=== PATIENT | female | born 1995 | race Caucasian/White ===

== ENCOUNTER 2017-07-26 07:22 | Inpatient (IN) | payer MEDICAID ==
[~2017-07-26] VITALS: Ht 165.1 cm; Wt 56.8 kg
[2017-07-26 08:02] VITALS: BP 119/74
[2017-07-26 08:15] LABS: AMPHETAMINE SCREEN, URINE Negative (Negative); BARBITURATE SCREEN, URINE Negative (Negative); BENZODIAZEPINE SCREEN, URINE Negative (Negative); CANNABINOID SCREEN, URINE Positive (Negative); COCAINE SCREEN, URINE Negative (Negative); METHADONE SCREEN, URINE Positive (Negative); OPIATE SCREEN, URINE Negative (Negative)
[2017-07-26 08:21] LABS: MICROSCOPIC INDICATED
[2017-07-26] MEDS ORDERED: PREN1TAB10 PO (08:31)
[2017-07-26] MEDS ORDERED: METH40TA3 PO (08:31)
[2017-07-26] MEDS ORDERED: CALC200T3 PO (08:32)
[2017-07-26] MEDS ORDERED: BETAMETHASONE 6 MG/ML, 5ML IM ONE (10:24)
[2017-07-26] MEDS ORDERED: MAGNESIUM SULF. PMX 20GM/500ML 500 ML IV ONE ×2 (10:24→19:04)
[2017-07-26] MEDS ORDERED: PENICILLIN GK 5,000,000 UNITS in SODIUM CHLORIDE 0.9% 100 ML IVPB ONE (10:30)
[2017-07-26] MEDS ORDERED: MAGNESIUM SULFATE PMX 4GM/100M 100 ML IVPB ONE (10:30)
[2017-07-26] MEDS: LACTATED RINGERS 1,000 ML IV PRN ×2 (10:35→14:41)
[2017-07-26] MEDS: BETAMETHASONE 6 MG/ML, 5ML IM SCH (10:36)
[2017-07-26 10:47] LABS: BASOPHILS # (AUTO) 0.02 x10^3/uL (0-0.1); BASOPHILS % (AUTO) 0 % (0-1); EOSINOPHILS # (AUTO) 0.02 x10^3/uL (0-0.4); EOSINOPHILS % (AUTO) 0 % (1-7); LYMPHOCYTES # (AUTO) 2.16 x10^3/uL (1-3.4); LYMPHOCYTES % (AUTO) 17 % (22-44); MD NO; MEAN CORPUSCULAR HEMOGLOBIN 32.4 pg (27.0-34.8); MEAN CORPUSCULAR HGB CONC 33.5 g/dL (32.4-35.8); MEAN CORPUSCULAR VOLUME 96.5 fL (80-100); MEAN PLATELET VOLUME 9.2 fL (7.4-10.4); MONOCYTES % (AUTO) 4 % (2-9); NEUTROPHILS # (AUTO) 10.06 x10^3/uL (1.8-6.8); NEUTROPHILS % (AUTO) 79 % (42-75); PLATELET COUNT 266 x10^3/uL (130-400); RED BLOOD COUNT 3.56 x10^6/uL (3.82-5.3); RED CELL DISTRIBUTION WIDTH 13.1 % (9.6-15.2)
[2017-07-26] MEDS: MAGNESIUM SULF. PMX 20GM/500ML 500 ML IV SCH ×2 (11:05→19:06)
[2017-07-26 11:17] LABS: ALBUMIN 2.4 g/dL (3.4-5.0); ANION GAP 7 mmol/L (5-15); CALCIUM 8.2 mg/dL (8.5-10.1); CHLORIDE 108 mmol/L (98-107)
[2017-07-26 11:20] LABS: ALANINE AMINOTRANSFERASE 18 U/L (12-78); ALKALINE PHOSPHATASE 130 U/L (45-117); BILIRUBIN,TOTAL 0.8 mg/dL (0.2-1.0); CREATININE 0.66 mg/dL (0.55-1.02); TOTAL PROTEIN 6.1 g/dL (6.4-8.2)
[2017-07-26] MEDS: PENICILLIN GK 2,500,000 UNITS in DEXTROSE 5% 100 ML IVPB SCH ×3 (14:40→22:09)
[2017-07-27] MEDS ORDERED: ONDANSETRON ODT 4 MG ONE (00:56)
[2017-07-27] MEDS: PENICILLIN GK 2,500,000 UNITS in DEXTROSE 5% 100 ML IVPB SCH ×5 (02:27→20:17)
[2017-07-27] MEDS ORDERED: METHADONE INTENSOL 10 MG/ML ORAL CONC ONE ×2 (04:37→04:38)
[2017-07-27] MEDS: METHADONE ORAL.SOLN 1 MG/ML PO SCH (04:55)
[2017-07-27] MEDS ORDERED: MAGNESIUM SULF. PMX 20GM/500ML 500 ML IV ONE (05:07)
[2017-07-27] MEDS: MAGNESIUM SULF. PMX 20GM/500ML 500 ML IV SCH (05:12)
[2017-07-27 09:15] VITALS: BP 107/53
[2017-07-27] MEDS: BETAMETHASONE 6 MG/ML, 5ML IM SCH (10:54)
[2017-07-27] MEDS: LACTATED RINGERS 1,000 ML IV PRN (11:32)
[2017-07-27] MEDS ORDERED: FENTANYL PF 100 MCG/2ML ONE (19:03)
[2017-07-27] MEDS ORDERED: LIDOCAINE/PF 1.5%-EPI 1:200K, 30ML ONE (19:04)
[2017-07-27] MEDS ORDERED: FENTANYL/BUPIV./NS/PF 250 ML EPIDCONT ONE (19:04)
[2017-07-27] MEDS ORDERED: BUPIVACAINE 0.25% ONE (19:04)
[2017-07-27] MEDS ORDERED: FENTANYL/BUPIV./NS/PF 250 ML EPIDCONT SCH (19:39)
[2017-07-27] MEDS ORDERED: LACTATED RINGERS 1,000 ML IV SCH (19:39)
[2017-07-27] MEDS ORDERED: EPHEDRINE 50 MG/ML, 1ML IVPush PRN (20:00)
[2017-07-27] MEDS ORDERED: ONDANSETRON 2MG/ML, 2ML IVPush PRN (20:00)
[2017-07-27] MEDS ORDERED: LACTATED RINGERS 1,000 ML IVBOLUS PRN (20:00)
[2017-07-27] MEDS ORDERED: NEWBORN KIT ONE (20:22)
[2017-07-28] MEDS ORDERED: MAGNESIUM SULF. PMX 20GM/500ML 500 ML IV ONE
[2017-07-28] MEDS: MAGNESIUM SULF. PMX 20GM/500ML 500 ML IV SCH (00:02)
[2017-07-28] MEDS: PENICILLIN GK 2,500,000 UNITS in DEXTROSE 5% 100 ML IVPB SCH ×2 (00:47→05:05)
[2017-07-28] MEDS ORDERED: D5%-LACTATED RINGERS 1,000 ML IV SCH (00:55)
[2017-07-28] MEDS ORDERED: OXYTOCIN 30U/ 0.9% NaCL 500ML 500 ML IV ONE (00:55)
[2017-07-28] MEDS ORDERED: CALCIUM CARBONATE 500 MG TAB.CHEW PO PRN (01:00)
[2017-07-28] MEDS ORDERED: TERBUTALINE 1 MG/ML, 1ML IVPush PRN (01:00)
[2017-07-28] MEDS ORDERED: OXYTOCIN 30U/ 0.9% NaCL 500ML 500 ML ONE (01:57)
[2017-07-28] MEDS ORDERED: METHADONE INTENSOL 10 MG/ML ORAL CONC ONE (02:19)
[2017-07-28] MEDS: METHADONE ORAL.SOLN 1 MG/ML PO SCH (02:25)
[2017-07-28] MEDS ORDERED: FENTANYL PF 100 MCG/2ML ONE (10:30)
[2017-07-28] MEDS ORDERED: OXYTOCIN 30U/ 0.9% NaCL 500ML 500 ML IV SCH (10:39)
[2017-07-28] MEDS ORDERED: IBUPROFEN 600 MG TABLET ONE (10:50)
[2017-07-28] MEDS ORDERED: OXYcodone/APAP 5/325MG TABLET ONE (10:50)
[2017-07-28] MEDS: OXYcodone/APAP 5/325MG TABLET PO PRN ×3 (10:51→19:24)
[2017-07-28] MEDS: IBUPROFEN 600 MG TABLET PO PRN ×2 (10:51→16:38)
[2017-07-28] MEDS ORDERED: ACETAMINOPHEN 325 MG TABLET PO PRN (11:00)
[2017-07-28] MEDS ORDERED: CARBOPROST TROMETHAMINE 250 MCG/ML, 1ML IM PRN (11:00)
[2017-07-28] MEDS ORDERED: METHYLERGONOVINE 0.2 MG/ML IM PRN (11:00)
[2017-07-28] MEDS ORDERED: ONDANSETRON 2MG/ML, 2ML IV PRN (11:00)
[2017-07-28] MEDS ORDERED: GLYCERIN ADULT SUPP PR PRN (11:00)
[2017-07-28] MEDS ORDERED: OXYcodone/APAP 5/325MG TABLET PO PRN (11:00)
[2017-07-28] MEDS ORDERED: MISOPROSTOL 200 MCG TABLET PR PRN (11:00)
[2017-07-28] MEDS ORDERED: BISACODYL 10 MG SUPP PR PRN (11:00)
[2017-07-28] MEDS ORDERED: IBUPROFEN 800 MG TABLET PO PRN (11:00)
[2017-07-28] MEDS ORDERED: METOCLOPRAMIDE 5 MG/ML, 2ML IV PRN (11:00)
[2017-07-28] MEDS ORDERED: FENTANYL PF 100 MCG/2ML IVPush PRN (11:00)
[2017-07-28 13:20] VITALS: BP 126/76
[2017-07-28] MEDS: DOCUSATE 100 MG CAPSULE PO PRN ×2 (14:14→19:24)
[2017-07-28 19:30] VITALS: BP 110/62
[2017-07-29 00:01] VITALS: BP 104/62
[2017-07-29] MEDS: IBUPROFEN 600 MG TABLET PO PRN (00:07)
[2017-07-29] MEDS: OXYcodone/APAP 5/325MG TABLET PO PRN (00:08)
[2017-07-29] MEDS ORDERED: METHADONE INTENSOL 10 MG/ML ORAL CONC ONE ×2 (03:59→04:00)
[2017-07-29] MEDS: METHADONE ORAL.SOLN 1 MG/ML PO SCH (04:03)
[2017-07-29 06:37] LABS: BASOPHILS # (AUTO) 0.02 x10^3/uL (0-0.1); BASOPHILS % (AUTO) 0 % (0-1); EOSINOPHILS # (AUTO) 0.01 x10^3/uL (0-0.4); EOSINOPHILS % (AUTO) 0 % (1-7); LYMPHOCYTES # (AUTO) 2.95 x10^3/uL (1-3.4); LYMPHOCYTES % (AUTO) 29 % (22-44); MD NO; MEAN CORPUSCULAR HEMOGLOBIN 32.8 pg (27.0-34.8); MEAN CORPUSCULAR HGB CONC 33.5 g/dL (32.4-35.8); MEAN CORPUSCULAR VOLUME 97.9 fL (80-100); MEAN PLATELET VOLUME 9.2 fL (7.4-10.4); MONOCYTES # (AUTO) 0.79 x10^3/uL (0.2-0.8); MONOCYTES % (AUTO) 8 % (2-9); NEUTROPHILS # (AUTO) 6.34 x10^3/uL (1.8-6.8); NEUTROPHILS % (AUTO) 63 % (42-75); PLATELET COUNT 245 x10^3/uL (130-400); RED BLOOD COUNT 2.91 x10^6/uL (3.82-5.3); RED CELL DISTRIBUTION WIDTH 13.4 % (9.6-15.2)
[2017-07-29 07:10] VITALS: BP 121/83
[2017-07-29] MEDS ORDERED: FERR325T23 PO (07:36)
[2017-07-29] MEDS ORDERED: OXYC-302 PO (07:38)
[2017-07-29] MEDS ORDERED: IBUP-1222 PO (07:39)
[2017-07-29] MEDS ORDERED: PRENATAL VIT/IRON/FA 1 EACH TABLET PO SCH (09:00)
== END 2017-07-29 09:00 | disposition home or self-care (01) | DRG 775 ==
LOC: LDOP 07:22 → LDIP 10:10 → 2NW 07-28 13:15
PROVIDERS: ADMIT Student in an Organized Health Care Education/Training Program; ATTEND Student in an Organized Health Care Education/Training Program
PROC: 10907ZC Drainage of Amniotic Fluid, Therapeutic from Products of Conception, Via Natural or Artificial Opening (ICD-10-PCS; principal; 2017-07-28)
PROC: 10E0XZZ Delivery of Products of Conception, External Approach (ICD-10-PCS; 2017-07-28)
PROC: 3E0R3BZ Introduction of Anesthetic Agent into Spinal Canal, Percutaneous Approach (ICD-10-PCS; 2017-07-28)
PROC: 00HU33Z Insertion of Infusion Device into Spinal Canal, Percutaneous Approach (ICD-10-PCS; 2017-07-28)
PROC: 0HQ9XZZ Repair Perineum Skin, External Approach (ICD-10-PCS; 2017-07-28)
PROC: 0UQMXZZ Repair Vulva, External Approach (ICD-10-PCS; 2017-07-28)
DX: O60.14X0 Preterm labor third trimester with preterm delivery third trimester, not applicable or unspecified (principal); F11.20 Opioid dependence, uncomplicated; F17.210 Nicotine dependence, cigarettes, uncomplicated; O70.0 First degree perineal laceration during delivery; O99.03 Anemia complicating the puerperium; D50.9 Iron deficiency anemia, unspecified; Z37.0 Single live birth; O99.334 Smoking (tobacco) complicating childbirth; Z3A.33 33 weeks gestation of pregnancy
CPT/HCPCS: 36415; 76817; 80053; 80307; 81001; 82803; 83735; 85025; 86850; 86900; 87081; 87086; 89060; J0702; J2540; J3010; J3490; J3475; J7120; Q0114

== ENCOUNTER 2018-07-07 08:50 | Emergency (ER) | payer MEDICAID ==
[~2018-07-07] VITALS: Ht 162.6 cm; Wt 53.0 kg
[~2018-07-07 08:50] MED LIST: CALC200T3 PO; FERR325T23 PO; IBUP-1222 PO; METH40TA3 PO; OXYC-302 PO; PREN1TAB10 PO
[2018-07-07 08:54] VITALS: BP 124/80
[2018-07-07] MEDS ORDERED: ACETAMINOPHEN 325 MG TABLET ONE (09:29)
[2018-07-07] MEDS ORDERED: ACETAMINOPHEN 325 MG TABLET PO ONE (09:30)
--- NOTE | 2018-07-07 09:31 | NUR ---
Tylenol admin. No other needs.
--- NOTE | 2018-07-07 10:41 | NUR ---
Patient/Caregiver given discharge instructions and they have confirmed that they understand the instructions. Patient ambulatory with steady gait.
== END 2018-07-07 10:42 | disposition home or self-care (01) ==
LOC: ED 09:34
DX: J06.9 Acute upper respiratory infection, unspecified (principal); J02.9 Acute pharyngitis, unspecified
CPT/HCPCS: 71046; 87081; 87880; 99284

== ENCOUNTER 2020-08-16 09:54 | Emergency (ER) | payer MEDICAID ==
[~2020-08-16] VITALS: Ht 165.1 cm; Wt 53.4 kg
[~2020-08-16 09:54] MED LIST changes: -OXYC-302 PO; +OXYC1TAB14 PO
--- NOTE | 2020-08-16 10:41 | NUR ---
TO MER FROM LOBBY
--- NOTE | 2020-08-16 10:45 | NUR ---
PT IS HERE D/T ALLERGIC RXN R/T ABX SHE WAS TAKING FOR SORE THROAT. PT HAS BEEN HAVING RXN TO ABX. PT REPORTS CONTINUING TAKING ABX THROUGH COURSE. PT ALSO HAD STEROID X4 DAYS. PT HOOKED TO MONITOR. PA BEDSIDE.
--- NOTE | 2020-08-16 10:58 | NUR ---
BEDSIDE REPORT FROM JOSH ANGELES. PT RESTING IN NAD. VSS.
[2020-08-16] MEDS ORDERED: EPINEPHRINE 1 MG/ML, 1ML SQ ONE (11:00)
--- NOTE | 2020-08-16 11:00 | NUR ---
SBAR REPORT GIVEN TO LITA, NO ACUTE DISTRESS NOTED PT HAS REGULAR/UNLABORED BREATHING, VSS.
[2020-08-16] MEDS ORDERED: EPINEPHRINE 1 MG/ML, 1ML ONE (11:35)
--- NOTE | 2020-08-16 11:39 | NUR ---
PT MEDICATED PER MAY. 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
[2020-08-16 12:37] VITALS: BP 123/77
== END 2020-08-16 12:39 | disposition home or self-care (01) ==
LOC: ED 11:17
DX: L50.0 Allergic urticaria (principal); R21 Rash and other nonspecific skin eruption
CPT/HCPCS: 96372; 99283; J0171

== ENCOUNTER 2020-10-01 18:35 | Emergency (ER) | payer BC, MEDICAID, OTHER ==
[~2020-10-01] VITALS: Ht 167.6 cm; Wt 53.0 kg
[2020-10-01 18:48] VITALS: BP 113/83
[2020-10-01] MEDS ORDERED: DEXAMETHASONE 4 MG/ML, 5ML ONE (20:47)
[2020-10-01] MEDS ORDERED: DEXAMETHASONE 4 MG/ML, 1ML PO ONE (21:00)
== END 2020-10-01 20:58 | disposition home or self-care (01) ==
LOC: ED 20:18
DX: J02.8 Acute pharyngitis due to other specified organisms (principal); B97.89 Other viral agents as the cause of diseases classified elsewhere; L04.0 Acute lymphadenitis of face, head and neck; F17.210 Nicotine dependence, cigarettes, uncomplicated
CPT/HCPCS: 70360; 87081; 87880; 99284; J1100